=== PATIENT | female | born 1955 | race Two or more races ===

== ENCOUNTER 2019-07-31 18:12 | Emergency (ER) | payer SELFPAY ==
[~2019-07-31] VITALS: Ht 172.7 cm; Wt 107.5 kg
[~2019-07-31 18:12] MED LIST: ANTIVERT/2525 MG PO; CIPRO500 MG PO; HYDROCHLOROTH12.5 M2 PO; IBUPROFEN400 MG PO
[2019-07-31 20:16] VITALS: BP 138/78
== END 2019-07-31 20:16 | disposition home or self-care (01) ==
LOC: ED 18:12
DX: M17.12 Unilateral primary osteoarthritis, left knee (principal); I10 Essential (primary) hypertension; Z90.49 Acquired absence of other specified parts of digestive tract; Z88.5 Allergy status to narcotic agent
CPT/HCPCS: Q0092